=== PATIENT | female | born 1990 | race Caucasian/White ===

== ENCOUNTER 2022-06-30 16:49 | Emergency (ER) | payer MEDICAID, OTHER ==
[~2022-06-30] VITALS: Ht 175.3 cm; Wt 73.0 kg
[2022-06-30 19:21] VITALS: BP 140/60
[2022-06-30] MEDS ORDERED: TETANUS-DIPTH-ACEL PERTUSSIS 0.5ML SYR Tdap IM ONE (20:00)
[2022-06-30] MEDS ORDERED: LIDOCAINE 1% HCL (LOCAL ANESTH.) INJ 20ML MDV IJ ONE (20:00)
[2022-06-30] MEDS ORDERED: HYDROcodone-ACET 5/325MG TAB PO ONE (20:00)
[2022-06-30] MEDS ORDERED: ONDANSETRON ODT 4 MG TAB PO ONE (20:00)
[2022-06-30] MEDS ORDERED: IBUP800T27 PO (20:34)
[2022-06-30] MEDS ORDERED: AMOX-277 PO (20:34)
== END 2022-06-30 21:43 | disposition home or self-care (01) ==
LOC: EDBD 16:49 → ER 16:49
DX: S01.01XA Laceration without foreign body of scalp, initial encounter (principal); S71.111A Laceration without foreign body, right thigh, initial encounter; F17.210 Nicotine dependence, cigarettes, uncomplicated; F15.10 Other stimulant abuse, uncomplicated; Y00.XXXA Assault by blunt object, initial encounter; W54.0XXA Bitten by dog, initial encounter; Y93.89 Activity, other specified; Y92.89 Other specified places as the place of occurrence of the external cause; Y99.8 Other external cause status
CPT/HCPCS: 12002; 70450; 90471; 90715; 99285; J2001; Q0162

== ENCOUNTER 2022-07-08 09:29 | Emergency (ER) | payer MEDICAID ==
[~2022-07-08] VITALS: Ht 175.3 cm; Wt 70.3 kg
[~2022-07-08 09:29] MED LIST: AMOX-277 PO; IBUP800T27 PO
[2022-07-08 10:15] VITALS: BP 127/74
[2022-07-08] MEDS ORDERED: LIDOCAINE 1% HCL (LOCAL ANESTH.) INJ 20ML MDV IJ ONE (10:45)
[2022-07-08] MEDS ORDERED: cefTRIAXone SOD 1,000 MG VL IM ONE (11:00)
[2022-07-11] MEDS ORDERED: AMOX-277 PO (01:32)
[2022-07-11] MEDS ORDERED: ACET-1158 PO (01:32)
== END 2022-07-08 10:59 | disposition home or self-care (01) ==
LOC: ER 09:29
DX: T81.49XA Infection following a procedure, other surgical site, initial encounter (principal); F17.210 Nicotine dependence, cigarettes, uncomplicated; F15.10 Other stimulant abuse, uncomplicated; Z88.1 Allergy status to other antibiotic agents; Z48.02 Encounter for removal of sutures; Z88.6 Allergy status to analgesic agent
CPT/HCPCS: 10060; 96372; 99283; J0696; J2001

== ENCOUNTER 2022-07-10 21:30 | Emergency (ER) | payer MEDICAID, OTHER ==
[~2022-07-10] VITALS: Ht 175.3 cm; Wt 72.7 kg
[~2022-07-10 21:30] MED LIST changes: -AMOX-277 PO; +AMOX875T4 PO; +IBUP-1456 PO; -IBUP800T27 PO
[2022-07-11 00:46] VITALS: BP 132/85
[2022-07-11] MEDS ORDERED: cefTRIAXone SOD 1,000 MG VL IM ONE (01:30)
[2022-07-11] MEDS ORDERED: ACET500T58 PO (01:32)
[2022-07-11] MEDS ORDERED: AMOX875T4 PO (01:32)
== END 2022-07-11 01:46 | disposition home or self-care (01) ==
LOC: ER 21:34
DX: S71.151D Open bite, right thigh, subsequent encounter (principal); L02.415 Cutaneous abscess of right lower limb; F15.10 Other stimulant abuse, uncomplicated; F17.210 Nicotine dependence, cigarettes, uncomplicated; Z79.2 Long term (current) use of antibiotics; Z79.1 Long term (current) use of non-steroidal anti-inflammatories (NSAID); W54.0XXD Bitten by dog, subsequent encounter
CPT/HCPCS: 96372; 99283; J0696

== ENCOUNTER 2022-07-14 21:17 | Emergency (ER) | payer MEDICAID, OTHER ==
[~2022-07-14] VITALS: Ht 175.3 cm; Wt 72.7 kg
[~2022-07-14 21:17] MED LIST changes: +ACET500T58 PO
[2022-07-14] MEDS ORDERED: CLIN300C70 PO (22:45)
[2022-07-14] MEDS ORDERED: IBUP-1456 PO (22:45)
[2022-07-14 22:50] VITALS: BP 119/80
== END 2022-07-14 23:17 | disposition home or self-care (01) ==
LOC: ER 21:21
DX: Z48.00 Encounter for change or removal of nonsurgical wound dressing (principal); S71.101D Unspecified open wound, right thigh, subsequent encounter; F17.210 Nicotine dependence, cigarettes, uncomplicated; F15.10 Other stimulant abuse, uncomplicated; W54.0XXD Bitten by dog, subsequent encounter